=== PATIENT | female | born 1995 | race Caucasian/White ===

== ENCOUNTER → 2021-05-22 | Outpatient (CLI) | payer OTHER ==
[~2021-05-22] MED LIST: ALBU90OI; ALBU90OI INH; AMOX50SU PO; AZIT250 PO; BENZ100A PO; CODACEE120 PO; MONT10T PO; PROCODE120 PO; PSEU120ER PO; RXNEOPOLHC AD
== END ==
LOC: LAB 14:52 → LAB SHORT 14:52
DX: D28.0 Benign neoplasm of vulva (principal)
CPT/HCPCS: 88305

== ENCOUNTER 2024-10-14 19:56 | Emergency (ER) | payer OTHER ==
[~2024-10-14] VITALS: Ht 165.1 cm; Wt 72.6 kg
[2024-10-14 20:03] VITALS: BP 143/88
[2024-10-14] MEDS ORDERED: Diphth,Pertuss(Acell),Tet Vac 0.5 ML VIAL IM ONE (20:10)
== END 2024-10-14 20:45 | disposition home or self-care (01) ==
LOC: ER 19:56
DX: S61.012A Laceration without foreign body of left thumb without damage to nail, initial encounter (principal); J45.909 Unspecified asthma, uncomplicated; W26.0XXA Contact with knife, initial encounter; Z79.899 Other long term (current) drug therapy
CPT/HCPCS: 90715